=== PATIENT | female | born 1960 | race Caucasian/White ===

== ENCOUNTER → 2022-10-18 11:47 | Outpatient (CLI) | payer OTHER, SELFPAY ==
--- NOTE | 2022-10-18 11:49 | DI.RAD.S_ITS ---
PROCEDURE: XR SACRUM COCCYX MIN 2V INDICATIONS: Coccydynia TECHNIQUE: 3 views of the sacrum and coccyx acquired. COMPARISON: None. FINDINGS: Bones: No fractures or dislocations. No suspicious bony lesions. Soft tissues: Visualized bowel gas pattern is normal. No suspicious soft tissue densities. IMPRESSION: No acute bony abnormality. Dictated by: Damon Castaneda M.D. on 10/18/2022 at 14:29 Approved by: Damon Castaneda M.D. on 10/18/2022 at 14:30
--- NOTE | 2022-10-18 11:49 | DI.RAD.S_ITS ---
PROCEDURE: XR KNEE RT 3V INDICATIONS: Right knee pain TECHNIQUE: 3 views of the knee were acquired. COMPARISON: None. FINDINGS: Bones: No fractures or dislocations. No suspicious bony lesions. Soft tissues: No joint effusion. No suspicious soft tissue calcifications. IMPRESSION: No acute bony abnormality. No significant osteoarthritis. Dictated by: Damon Castaneda M.D. on 10/18/2022 at 14:28 Approved by: Damon Castaneda M.D. on 10/18/2022 at 14:29
== END ==
PROVIDERS: PCP Specialist; Referring Provider Physical Medicine & Rehabilitation; Visit Provider Physical Medicine & Rehabilitation
DX: M25.561 Pain in right knee (principal); M17.9 Osteoarthritis of knee, unspecified; M53.3 Sacrococcygeal disorders, not elsewhere classified
CPT/HCPCS: 72220; 73562

== ENCOUNTER 2022-12-07 09:55 | Outpatient (CLI) | payer OTHER, SELFPAY ==
[2022-12-07] VITALS (9 sets, daily range): BP systolic 130–168; BP diastolic 60–78; PULSE 71–85; RESP 11–20; TEMP 37; O2SAT 99–100
[2022-12-07] MEDS: MIDAZOLAM 2 MG/2 ML VIAL IV (11:25)
[2022-12-07] MEDS: IOPAMIDOL 15 ML VIAL 3 ML INJ (11:32)
--- NOTE | 2022-12-07 11:43 | PM.PROC.IR.1 ---
Date/Time/Diagnoses Date of procedure: 12/07/22 Time of procedure: 11:43 Pre-procedure diagnosis: Coccydynia Post-procedure diagnosis: same Procedure Notes Procedure: Fluoroscopically guided coccyx injection with prolotherapy Indications: Juliane is referred by Dr. Bender for Coccydynia with Ligamentous Laxity Physician: Jaswinder Guzman Total Fluoroscopy time (seconds): 3 Total sedation minutes: 14 Complications: none Procedure in detail & Post-procedure care: Following review of allergies and review of potential side effects and complications, including, but not necessarily limited to, infection, allergic reaction, local tissue breakdown, temporary as well as permanent nerve injury, paralysis, stroke and possible , the patient indicated that they understood and agreed to proceed.? An informed consent was signed by the patient, witnessed by a nurse, and placed in the patient's chart.? Additionally, other treatment options including modalities, medications, and physical therapy were reviewed with the patient. After review of previous anaesthesic history and IV conscious sedation the patient was deemed safe to proceed with today?s procedure with IV conscious sedation as ASA class II designation. Safety time-out was performed to confirm patient ID, procedure to be performed and site of procedure. IV sedation was accomplished with a combination of 2mg of Versed administered by the RN after DO order, titrated to patient comfort during the course of the procedure while the patient remained responsive to all verbal commands. In the prone position following sterile prep and drape of the pelvic region, the hyper lucency on in the inferior aspect of the coccyx joint was identified fluoroscopically the skin was anesthetized be a 25 gauge 1.5 needle with approximately 2cc of 1% lidocaine solution.? At this point, a 25 gauge 1.5 inch needle was atraumatically introduced and advanced under fluoroscopic guidance into the inferior aspect of the coccyx joint and sacro-coccyxgeal ligament complex.? Following negative aspiration, approximately 0.3cc of Isovue-300 was injected confirming intra-articular placement without vascular uptake. Radiographic data, including multiple fluoroscopic views of the pelvis, reveals a spinal needle in the coccyx. ? At this point a total of 15cc of 20% dextrose solution was injected to the sacro-coccygeal joint and ligamentous complex without incident. The patient tolerated the procedure well without signs or symptoms of complications prior to transfer to the recovery area for further monitoring. The patient was then transferred to the recovery area with a bur observed for an appropriate time after the injection.? The patient reverted a vas score of 7 prior to the procedure and postprocedure vas of 1. POSTOP INSTRUCTIONS The patient was provided with a pain like to continue to record the patient's response to the target specific procedure prior to the patient's follow-up visit with the referring physician.? Additionally, specific post injection care instructions and a contact number to our office were provided if concerns arise regarding the possible complications associated with procedure are suspected.
== END 2022-12-07 12:09 | disposition home or self-care (01) ==
LOC: RAD 09:56
PROVIDERS: PCP Specialist; Referring Provider Physical Medicine & Rehabilitation; Visit Provider Physical Medicine & Rehabilitation
DX: M53.3 Sacrococcygeal disorders, not elsewhere classified (principal)
CPT/HCPCS: J2250

== ENCOUNTER → 2022-12-07 09:56 | Outpatient (CLI) | payer OTHER, SELFPAY ==
--- NOTE | 2022-12-07 | DI.MRI.S_ITS ---
PROCEDURE: MR KNEE RT WO CON INDICATIONS: Sprain of lateral collateral ligament of right knee, subsequ TECHNIQUE: Noncontrast sagittal PD fast spin echo and T2 fast spin echo with fat saturation, sagittal 3-D FLASH with fat saturation; coronal T1 spin echo and PD fast spin echo with fat saturation, and axial PD fast spin echo with fat saturation through the knee. COMPARISON: [facility], CR, XR KNEE RT 3V, 10/18/2022, 11:51. FINDINGS: Image quality: Excellent. Menisci: There is large bucket-handle tear involving the body and posterior horn of the medial medial meniscus. There is also tear of the posterior root of the medial meniscus. The lateral meniscus demonstrates normal morphology and internal signal. Cruciate ligaments: The anterior and posterior cruciate ligaments appear intact. Medial structures: The medial collateral ligament appears intact. The semimembranosus tendon insertions and meniscocapsular junction appear intact. Visualized portions of the pes anserinus tendons appear normal. No abnormal bursal fluid. Lateral structures: The lateral collateral ligament and the biceps femoris tendon appear intact. The popliteus tendon appears normal. Iliotibial band appears normal. Anterior structures: The quadriceps and patellar tendons appear intact. Patellar alignment is normal. No femoral trochlear dysplasia or ventral trochlear prominence. No edema in the infrapatellar fat pad. Bones and cartilage: No bone marrow contusions or fractures. Mild tricompartmental cartilage fibrillation, most pronounced in the medial femorotibial compartment. Mild cartilage thinning in the medial femorotibial compartment. Joint space: There is moderate knee joint fluid. No James's cyst. Normal appearing synovial plicae are incidentally noted. IMPRESSION: 1. Large bucket handle tear of the medial meniscus. 2. Cartilage thinning and fibrillation. 3. Moderate knee joint effusion. Dictated by: Gautam Ventura M.D. on 12/07/2022 at 11:07 Approved by: Gautam Ventura M.D. on 12/07/2022 at 12:17
--- NOTE | 2022-12-07 09:57 | DI.RAD.S_ITS ---
PROCEDURE: PAIN SI JOINT INJECTION INDICATIONS: TRAUMATIC COCCYDYNIA COMPARISON: None. FINDINGS: Fluoroscopic spot filming was performed to verify placement of spinal needles at the coccyx. Appropriate location(s) of the needle tip(s) was confirmed by injection of iodinated contrast. IMPRESSION: Fluoroscopic guidance utilized for are coccyx injections. Dictated by: Damon Castaneda M.D. on 12/07/2022 at 12:49 Approved by: Damon Castaneda M.D. on 12/07/2022 at 12:49
== END ==
PROVIDERS: PCP Specialist; Referring Provider Specialist; Visit Provider Specialist
DX: M53.3 Sacrococcygeal disorders, not elsewhere classified (principal); S83.211A Bucket-handle tear of medial meniscus, current injury, right knee, initial encounter; S83.421D Sprain of lateral collateral ligament of right knee, subsequent encounter; M25.461 Effusion, right knee
CPT/HCPCS: 27096; 73721; 99152; J2250

== ENCOUNTER → 2023-05-23 12:52 | Outpatient (CLI) | payer OTHER, SELFPAY ==
--- NOTE | 2023-05-23 12:53 | DI.MRI.S_ITS ---
PROCEDURE: MR LUMBAR SPINE WO CON INDICATIONS: LOW BACK PAIN RIGHT LOWER EXTREMITY SYMPTOMS TECHNIQUE: Noncontrast sagittal T1 spin echo and T2 fast echo, sagittal STIR, and T2 fast spin echo through the lumbar spine. In cases with scoliosis, additional coronal T2 fast spin echo may be performed. COMPARISON: None. FINDINGS: Image quality: Excellent. Alignment and Curvature: There is normal bony alignment. Bone Marrow: Marrow is of normal overall signal. No acute vertebral body compression fractures. Spinal Cord: Conus medullaris terminates at the L2 level. Visualized cord demonstrates normal signal and size. Paraspinous Soft Tissues: No paravertebral masses. Subcentimeter T2 hyperintensity within the liver, favored to represent a simple cyst. T12-L1: No central canal or neural foraminal stenosis. L1-L2: No central canal or neural foraminal stenosis. L2-L3: Disc desiccation and mild height loss. Small posterior disc bulge. Facet arthropathy and thickened ligamentum flavum. Epidural lipomatosis. Mild central canal stenosis. No neural foraminal stenosis. L3-L4: Disc desiccation. Diffuse disc bulge with superimposed right paracentral and foraminal disc protrusion. Facet arthropathy and thickening of the ligamentum flavum. Epidural lipomatosis. Mild central canal stenosis and narrowing of the right lateral recess with abutment versus impingement of the descending right L4 nerve roots.. Mild right neural foraminal stenosis. No left neural foraminal stenosis. L4-L5: Disc desiccation and posterior disc bulge. Facet arthropathy and thickening of ligamentum flavum. Epidural lipomatosis. Mild central canal stenosis. Mild bilateral neural foraminal stenosis. L5-S1: Occasion and disc bulge with minimal central disc protrusion. Facet arthropathy. No central canal stenosis. Mild bilateral neural foraminal stenosis. IMPRESSION: 1. Multilevel degenerative changes of the lumbar spine as described above. 2. At L3-L4, there is narrowing of the right lateral recess with abutment versus impingement of the descending right L4 nerve root. 3. Multilevel mild central canal stenosis and mild bilateral neural foraminal stenosis as described above. Dictated by: Dani He M.D. on 05/23/2023 at 14:09 Approved by: Dani He M.D. on 05/23/2023 at 14:14
== END ==
PROVIDERS: PCP Specialist; Referring Provider Physical Medicine & Rehabilitation; Visit Provider Physical Medicine & Rehabilitation
DX: M54.16 Radiculopathy, lumbar region (principal); M48.061 Spinal stenosis, lumbar region without neurogenic claudication
CPT/HCPCS: 72148

== ENCOUNTER 2023-12-18 12:36 | Outpatient (CLI) | payer OTHER, SELFPAY ==
--- NOTE | 2023-12-18 12:37 | DI.RAD.S_ITS ---
PROCEDURE: PAIN JOINT INJECTION MID INDICATIONS: Traumatic coccydynia COMPARISON: None. TECHNIQUE: Intraoperative fluoroscopic images were obtained of the pelvis. Findings and impression: Intraoperative fluoroscopic images were performed for needle localization at the coccyx. Contrast opacifies the area of interest. Please see operative note for full details. Radiologist was not present for the procedure Dictated by: Ghanshyam Gordon M.D. on 12/18/2023 at 16:06 Approved by: Ghanshyam Gordon M.D. on 12/18/2023 at 16:08
[2023-12-18 13:35] VITALS: BP 122/60; PULSE 70; RESP 18; TEMP 36.8; O2SAT 99
--- NOTE | 2023-12-18 13:45 | PC.NURSE ---
Transportation Patient is here for coccyx injection today. Patient is unaccompanied. Patient states that she is taking a taxi to [employer] and taking a flight home to [facility]. Patient states that plane was supposed to depart at 3pm but patient states she can delay this departure time.
[2023-12-18 14:05] VITALS: BP 149/70; PULSE 85; RESP 14; O2SAT 100
[2023-12-18] MEDS: DEXAMETHASONE 10 MG/ML VIAL INJ (14:08)
[2023-12-18] MEDS: BETAMETHASONE 30 MG/5 ML MDV 6 MG INJ (14:08)
[2023-12-18] MEDS: BUPIVACAINE 0.5% (PF) 10 ML VIAL 2 ML INJ (14:08)
[2023-12-18] MEDS: iopamidoL 15 ML VIAL 3 ML INJ (14:08)
[2023-12-18 14:10] VITALS: BP 146/69; PULSE 89; RESP 17; O2SAT 100
--- NOTE | 2023-12-18 14:19 | PM.PROC.IR.1 ---
Date/Time/Diagnoses Date of procedure: 12/18/23 Time of procedure: 14:19 Pre-procedure diagnosis: Coccydynia Procedure Notes Procedure: Fluoroscopically guided contrast controlled Coccyx Injection Indications: Coccydynia Physician: Jaswinder Guzman Total Fluoroscopy time (seconds): 7 Total sedation minutes: 0 Procedure in detail & Post-procedure care: DESCRIPTION OF PROCEDURE Fluoroscopic guided, contrast controlled coccyx injection Following review of allergies and review of potential side effects and complications, including, but not necessarily limited to, infection, allergic reaction, local tissue breakdown, temporary as well as permanent nerve injury, paralysis, stroke and possible , the patient indicated that they understood and agreed to proceed. An informed consent was signed by the patient, witnessed by a nurse, and placed in the patient's chart. Additionally, other treatment options including modalities, medications, and physical therapy were reviewed with the patient. After review of previous anaesthesic history and IV conscious sedation the patient was deemed safe to proceed with today?s procedure with IV conscious sedation as ASA class II designation. Safety time-out was performed to confirm patient ID, procedure to be performed and site of procedure. IV sedation was deemed unnecessary and thus not dministered by the RN after DO order, titrated to patient comfort during the course of the procedure while the patient remained responsive to all verbal commands. In the prone position following sterile prep and drape of the pelvic region, the hyper lucency on in the inferior aspect of the coccyx joint was identified fluoroscopically the skin was anesthetized be a 25 gauge 1 eventual with approximately 2cc of 1% lidocaine solution. At this point, a 22 gauge 3inch spinal needle was atraumatically introduced and advanced under fluoroscopic guidance into the inferior aspect of the left sacroiliac joint. Following negative aspiration, approximately 0.3cc of Isovue-300 was injected confirming intra-articular placement without vascular uptake. Radiographic data, including multiple fluoroscopic views of the pelvis, reveals a spinal needle in the coccyx. Subsequent view show flow contrast tear superiorly and inferiorly within the joint capsule without vascular intrathecal uptake. At this point a total of 1cc or 0.5% Marcaine was combined with 1cc of 6mg of betamethasone was injected without incident. The patient tolerated the procedure well without signs or symptoms of complications prior to transfer to the recovery area for further monitoring. The patient was then transferred to the recovery area with a bur observed for an appropriate time after the injection. The patient reverted a vas score of 7 prior to the procedure and postprocedure vas of 1. POSTOP INSTRUCTIONS The patient was provided with a pain like to continue to record the patient's response to the target specific procedure prior to the patient's follow-up visit with the referring physician. Additionally, specific post injection care instructions and a contact number to our office were provided if concerns arise regarding the possible complications associated with procedure are suspected.
[2023-12-18 14:20] VITALS: BP 143/65; PULSE 78; RESP 18; O2SAT 98
== END 2023-12-18 14:24 | disposition home or self-care (01) ==
LOC: RAD 12:36
PROVIDERS: PCP Specialist; Referring Provider Physical Medicine & Rehabilitation; Visit Provider Physical Medicine & Rehabilitation
DX: M53.3 Sacrococcygeal disorders, not elsewhere classified (principal)
CPT/HCPCS: 20605; 77002; J0702; J1100